=== PATIENT | male | born 2000 | race Caucasian/White ===

== ENCOUNTER 2020-12-02 18:36 | Emergency (ER) | payer SELFPAY ==
[~2020-12-02] VITALS: Ht 175.3 cm; Wt 54.4 kg
[2020-12-02 18:50] VITALS: BP 131/55
--- NOTE | 2020-12-02 18:52 | NUR ---
PT TO AWAIT IN TENT
[2020-12-02] MEDS ORDERED: BPM/118S31 PO (19:23)
--- NOTE | 2020-12-02 19:26 | NUR ---
NOVEL SWAB OBTAINED AND SENT TO LAB
--- NOTE | 2020-12-02 19:40 | NUR ---
Patient discharged with v/s stable. Written and verbal after care instructions given and explained. Patient alert, oriented and verbalized understanding of instructions. Ambulatory with steady gait. All questions addressed prior to discharge. ID band removed. Patient advised to follow up with PMD. Rx of BROMFED given. Patient educated on indication of medication including possible reaction and side effects. Opportunity to ask questions provided and answered.
== END 2020-12-02 19:40 | disposition home or self-care (01) ==
LOC: MED 18:36
DX: J06.9 Acute upper respiratory infection, unspecified (principal); Z20.822 Contact with and (suspected) exposure to COVID-19
CPT/HCPCS: 99283; U0003